=== PATIENT | male | born 1955 | race Caucasian/White ===

== ENCOUNTER 2019-07-16 13:16 | Emergency (ER) | payer OTHER ==
[~2019-07-16] VITALS: Ht 175.3 cm; Wt 97.5 kg
[~2019-07-16 13:16] MED LIST: CEPH500 PO; HYDACE5 PO
== END 2019-07-16 15:41 | disposition home or self-care (01) ==
LOC: ER 13:16
DX: S40.021A Contusion of right upper arm, initial encounter (principal); M25.511 Pain in right shoulder; F17.200 Nicotine dependence, unspecified, uncomplicated; W19.XXXA Unspecified fall, initial encounter
CPT/HCPCS: 73030; 99283-25

== ENCOUNTER 2022-03-10 17:40 | Emergency (ER) | payer OTHER ==
[~2022-03-10] VITALS: Ht 175.3 cm; Wt 93.0 kg
[~2022-03-10 17:40] MED LIST changes: +ACET325 PO; +IBUP400 PO; +OXYC5 PO
[2022-03-10 18:17] LABS: BASOPHILS ABSOLUTE AUTO 0.06 K/mm3 (0.00-0.23); BASOPHILS PERCENT AUTO 1 % (0-2); EOSINOPHILS PERCENT AUTO 1 % (0-6); Hematocrit 43.6 % (37.0-53.0); Hemoglobin 14.4 g/dL (13.5-17.5); IMMATURE GRAN ABSOLUTE AUTO 0.05 K/mm3 (0.00-0.10); IMMATURE GRAN PERCENT AUTO 1 % (0-1); LYMPHOCYTES ABSOLUTE AUTO 1.64 K/mm3 (0.84-5.20); LYMPHOCYTES PERCENT AUTO 18 % (21-46); MONOCYTES ABSOLUTE AUTO 0.78 K/mm3 (0.16-1.47); MONOCYTES PERCENT AUTO 8 % (4-13); Mean Corpuscular Volume 94 fL (80-100); Mean Platelet Volume 9.8 fL (9.1-12.4); NEUTROPHILS ABSOLUTE AUTO 6.61 K/mm3 (1.96-9.15); NEUTROPHILS PERCENT AUTO 72 % (41-73); Platelet Count 257 K/mm3 (150-400); RDW Coefficient Variation 12.7 % (11.7-14.2); RDW Standard Deviation 43.7 fL (35.1-46.3); Red Blood Cell Count 4.64 M/mm3 (4.30-5.90); White Blood Cell Count 9.24 K/mm3 (4.00-11.30)
[2022-03-10 18:32] LABS: Albumin, Blood 3.4 g/dL (3.4-5.0); Bilirubin, Total 0.5 mg/dL (0.1-1.0); Bun/Creatinine Ratio 14.6 (12.0-20.0); Creatinine, Blood 1.23 mg/dL (0.60-1.20); Globulin, Blood 3.5 g/dL (2.2-4.0); Potassium, Blood 3.9 mmol/L (3.5-5.5); Total Protein, Blood 6.9 g/dL (6.4-8.2)
== END 2022-03-10 21:05 | disposition home or self-care (01) ==
LOC: ER 17:40
PROVIDERS: Student in an Organized Health Care Education/Training Program
DX: S06.9X9A Unspecified intracranial injury with loss of consciousness of unspecified duration, initial encounter (principal); S00.211A Abrasion of right eyelid and periocular area, initial encounter; S40.812A Abrasion of left upper arm, initial encounter; S40.811A Abrasion of right upper arm, initial encounter; M54.2 Cervicalgia; F17.200 Nicotine dependence, unspecified, uncomplicated; F12.90 Cannabis use, unspecified, uncomplicated; V18.0XXA Pedal cycle driver injured in noncollision transport accident in nontraffic accident, initial encounter; Y92.9 Unspecified place or not applicable
CPT/HCPCS: 36415; 70450; 72125; 80053; 85025; 93005; 93010; 99285-25

== ENCOUNTER 2022-11-28 10:48 | Inpatient (IN) | payer OTHER ==
[~2022-11-28] VITALS: Ht 175.3 cm; Wt 103.8 kg
[2022-11-28 11:14] LABS: BASOPHILS ABSOLUTE AUTO 0.12 K/mm3 (0.00-0.23); BASOPHILS PERCENT AUTO 1 % (0-2); EOSINOPHILS ABSOLUTE AUTO 0.15 K/mm3 (0.00-0.68); EOSINOPHILS PERCENT AUTO 1 % (0-6); Hematocrit 39.1 % (37.0-53.0); Hemoglobin 13.5 g/dL (13.5-17.5); IMMATURE GRAN PERCENT AUTO 1 % (0-1); LYMPHOCYTES ABSOLUTE AUTO 1.23 K/mm3 (0.84-5.20); LYMPHOCYTES PERCENT AUTO 6 % (21-46); MONOCYTES PERCENT AUTO 11 % (4-13); Mean Corpuscular HGB 31.2 pg (26.0-34.0); Mean Corpuscular HGB Conc 34.5 g/dL (31.5-36.5); Mean Corpuscular Volume 90 fL (80-100); NEUTROPHILS PERCENT AUTO 81 % (41-73); Platelet Count 498 K/mm3 (150-400); RDW Coefficient Variation 12.5 % (11.7-14.2); RDW Standard Deviation 41.5 fL (35.1-46.3); Red Blood Cell Count 4.33 M/mm3 (4.30-5.90)
[2022-11-28 13:10] LABS: Albumin, Blood 1.9 g/dL (3.4-5.0); Albumin/Globulin Ratio 0.3 (0.8-1.8); Bun/Creatinine Ratio 17.6 (12.0-20.0); Calcium, Blood 9.7 mg/dL (8.5-10.1); Creatinine, Blood 1.08 mg/dL (0.60-1.20); Potassium, Blood 4.2 mmol/L (3.5-5.5); Total Protein, Blood 7.9 g/dL (6.4-8.2)
[2022-11-28 15:18] LABS: International Normalized Ratio 1.12; Prothrombin Time Results 11.7 Sec (9.7-11.5)
[2022-11-28 16:37] LABS: Automated BF RBC Count 0.003 M/mm3 (0-0)
[2022-11-28 17:05] LABS: Automated BF WBC Count 3.992 K/mm3 (0-999); Body Fluid WBC Count 3992 /mm3 (0-999); RBC Count, Body Fluid 3000 /mm3 (0-0)
[2022-11-28 17:07] LABS: Albumin, Body Fluid 1.8 g/dL; Glucose, Body Fluid 10 mg/dL; Protein, Body Fluid 4.8 g/dL
[2022-11-28 17:25] LABS: Lactate Dehydrogenase, Body Fl 1473 U/L
[2022-11-28 17:26] LABS: Color, Body Fluid Yellow (None-Yellow); Total Cell Count, Body Fluid 100
[2022-11-28 17:27] LABS: Appearance, Body Fluid Cloudy (Clear)
[2022-11-28 17:38] LABS: pH, Body Fluid 7.5
--- NOTE | 2022-11-28 18:27 | NUR ---
PT ARRIVED TO ROOM AT 1645 AFTER RECEIVING A THORACENTESIS AND CT SCAN. REPORTS HIS BREATHING HAS IMPROVED SINCE THE TAP DESPITE RESP BEING AT 32. RESP HAS DECREASED SINCE RESTING IN THE BED SINCE ARRIVAL. DENIES PAIN OR NAUSEA. REPORTS FEELING SOB BUT IMPROVED. INDEPENDENT IN TO BATHROOM. ASKED ABOUT HIS DRINKING ALCOHOL AND HE REPORTS HE HASN'T DRANK IN 3 DAYS AND HASN'T HAD ANY S/S OF WITHDRAWALS. ASKED ABOUT A NICOTINE PATCH AND HE STATED HE WASN'T STRESSED ABOUT IT. SKIN INTACT.
[2022-11-29 04:42] LABS: BASOPHILS PERCENT AUTO 0 % (0-2); EOSINOPHILS PERCENT AUTO 0 % (0-6); Hematocrit 36.6 % (37.0-53.0); Hemoglobin 12.1 g/dL (13.5-17.5); IMMATURE GRAN PERCENT AUTO 3 % (0-1); LYMPHOCYTES ABSOLUTE AUTO 1.13 K/mm3 (0.84-5.20); LYMPHOCYTES PERCENT AUTO 5 % (21-46); MONOCYTES PERCENT AUTO 7 % (4-13); Mean Corpuscular HGB 30.3 pg (26.0-34.0); Mean Corpuscular HGB Conc 33.1 g/dL (31.5-36.5); Mean Corpuscular Volume 92 fL (80-100); Mean Platelet Volume 10.2 fL (9.1-12.4); NEUTROPHILS ABSOLUTE AUTO 19.35 K/mm3 (1.96-9.15); NEUTROPHILS PERCENT AUTO 85 % (41-73); Platelet Count 476 K/mm3 (150-400); RDW Coefficient Variation 12.7 % (11.7-14.2); RDW Standard Deviation 42.3 fL (35.1-46.3); White Blood Cell Count 22.78 K/mm3 (4.00-11.30)
--- NOTE | 2022-11-29 04:55 | NUR ---
SHIFT NOTE ALERT AND ORIENTED X4 WITH SOME CONFUSION, COOPERATIVE WITH CARE. LUNG SOUNDS DIM WITH CRACKLES IN THE BASES. TELE SR, SOME TRACE EDEMA. SEVERE ABD DISTENTION, FIRM, GUARDED, ACTIVE BS, BM THIS SHIFT REPORTED BY PATIENT. NO CHANGE IN CIWA SCORES, JUST SOME MILD TREMORS. IV SL AFTER 1L INFUSION. NO OTHER ISSUES TO REPORT.
[2022-11-29 05:11] LABS: Magnesium, Blood 2.5 mg/dL (1.6-2.4)
[2022-11-29 05:16] LABS: Albumin, Blood 1.7 g/dL (3.4-5.0); Albumin/Globulin Ratio 0.3 (0.8-1.8); Bilirubin, Total 0.6 mg/dL (0.1-1.0); Bun/Creatinine Ratio 28.6 (12.0-20.0); Calcium, Blood 9.2 mg/dL (8.5-10.1); Creatinine, Blood 0.84 mg/dL (0.60-1.20); Globulin, Blood 5.7 g/dL (2.2-4.0); Potassium, Blood 4.6 mmol/L (3.5-5.5); Total Protein, Blood 7.4 g/dL (6.4-8.2)
--- NOTE | 2022-11-30 03:11 | NUR ---
SHIFT SUMMARY NOC PT A/O X 4. PT DX IS ARF WITH L PLEURAL EFFUSION AND SEPSIS WHO IS ON O2 2L/NC SPO2 > 92% PT LUNG SOUND WHEEZY WITH CRACKLES AND DIMINISHED INBOTH BASES. PT HAD THORACENTISIS WITH 700ML OF FLUID DRAINED. PT IS CURRENTLY ON AN ABX REGIMENT. PT IS ON TELE RUNNING SINUS RHYTHM @ 89 BPM. PT HAS SEVERE ABD DISTENTION AND NOTES MINIMAL PAIN. PT HAD C/O OF PAIN IN RIGHT SHOULDER CHRONIC IN NATURE AND MEDICATED PER EMAR. PT HAS CIWA PRN BUT PT DID NOT EXHIBIT ANY ALCOHOL WITHDRAWAL S/SX. PT PLEASANT AND COOPERATIVE WITH CARE. PT IS CURRENTLY RESTING IN BED WITH BED IN LOWEST POSITION, AND CALL LIGHT WITHIN REACH. WCTM.
[2022-11-30 05:15] LABS: BASOPHILS ABSOLUTE AUTO 0.12 K/mm3 (0.00-0.23); BASOPHILS PERCENT AUTO 1 % (0-2); EOSINOPHILS ABSOLUTE AUTO 0.16 K/mm3 (0.00-0.68); EOSINOPHILS PERCENT AUTO 1 % (0-6); Hematocrit 36.8 % (37.0-53.0); Hemoglobin 12.1 g/dL (13.5-17.5); IMMATURE GRAN PERCENT AUTO 4 % (0-1); LYMPHOCYTES ABSOLUTE AUTO 1.64 K/mm3 (0.84-5.20); LYMPHOCYTES PERCENT AUTO 10 % (21-46); MONOCYTES PERCENT AUTO 11 % (4-13); Mean Corpuscular HGB Conc 32.9 g/dL (31.5-36.5); Mean Corpuscular Volume 91 fL (80-100); Mean Platelet Volume 10.5 fL (9.1-12.4); NEUTROPHILS ABSOLUTE AUTO 11.62 K/mm3 (1.96-9.15); NEUTROPHILS PERCENT AUTO 73 % (41-73); Platelet Count 516 K/mm3 (150-400); RDW Coefficient Variation 12.8 % (11.7-14.2); RDW Standard Deviation 42.8 fL (35.1-46.3); Red Blood Cell Count 4.04 M/mm3 (4.30-5.90); White Blood Cell Count 15.94 K/mm3 (4.00-11.30)
[2022-11-30 06:17] LABS: Albumin, Blood 1.7 g/dL (3.4-5.0); Anion Gap 4 mmol/L (6-16); Blood Urea Nitrogen 30 mg/dL (8-24); CO2, Blood 26 mmol/L (21-32); Calcium, Blood 8.7 mg/dL (8.5-10.1); Chloride, Blood 103 mmol/L (98-108); Creatinine, Blood 0.83 mg/dL (0.60-1.20); Glomerular Filtration Rate 98 (60-); Glucose, Blood 163 mg/dL (70-99); Phosphorus, Blood 2.5 mg/dL (2.5-4.9); Potassium, Blood 4.5 mmol/L (3.5-5.5); Sodium, Blood 133 mmol/L (136-145)
--- NOTE | 2022-11-30 16:49 | NUR ---
SHIFT SUMMARY NO ACUTE CHANGES THIS SHIFT. PT AOX4, INDEPENDENT TO THE BATHROOM. HE HAS BEEN SITTING UP IN THE CHAIR MOST OF THE SHIFT. HE HAD A FRIEND VISIT TODAY. HE IS VERY PLESANT AND MAKES HIS NEEDS KNOWN. C/O SHOULDER PAIN TWICE AND WAS MEDICATED PER THE EMAR. NO OTHER COMPLAINTS. WILL REPORT TO ONCOMING NURSE.
--- NOTE | 2022-12-01 04:30 | NUR ---
Summary: No acute events overnight. Patient on 2L NC did well overnight. VSS. Voids in urinal. Mild pain in L ribs and shoulder, medicated per EMAR. Patient AOx4 calls appropriately. Independent in room.
[2022-12-01 04:35] LABS: Hemoglobin 12.4 g/dL (13.5-17.5); Mean Corpuscular HGB 30.4 pg (26.0-34.0); Mean Corpuscular HGB Conc 33.5 g/dL (31.5-36.5); Mean Corpuscular Volume 91 fL (80-100); Mean Platelet Volume 10.3 fL (9.1-12.4); Platelet Count 514 K/mm3 (150-400); RDW Coefficient Variation 12.7 % (11.7-14.2); RDW Standard Deviation 41.8 fL (35.1-46.3); Red Blood Cell Count 4.08 M/mm3 (4.30-5.90); White Blood Cell Count 17.67 K/mm3 (4.00-11.30)
[2022-12-01 04:52] LABS: Albumin, Blood 1.8 g/dL (3.4-5.0); Anion Gap 3 mmol/L (6-16); Blood Urea Nitrogen 26 mg/dL (8-24); Bun/Creatinine Ratio 35.9 (12.0-20.0); CO2, Blood 28 mmol/L (21-32); Calcium, Blood 8.9 mg/dL (8.5-10.1); Chloride, Blood 103 mmol/L (98-108); Creatinine, Blood 0.73 mg/dL (0.60-1.20); Glomerular Filtration Rate 102 (60-); Glucose, Blood 158 mg/dL (70-99); Phosphorus, Blood 2.8 mg/dL (2.5-4.9); Potassium, Blood 4.5 mmol/L (3.5-5.5); Sodium, Blood 134 mmol/L (136-145)
[2022-12-01 05:31] LABS: BAND PERCENT MAN 5 % (0-8); BASOPHILS PERCENT MAN 0 % (0-2); EOSINOPHILS ABSOLUTE MAN 0.17 K/mm3 (0.00-0.68); EOSINOPHILS PERCENT MAN 1 % (0-6); LYMPHOCYTES ABSOLUTE MAN 2.47 K/mm3 (0.84-5.20); LYMPHOCYTES PERCENT MAN 14 % (21-46); MONOCYTES ABSOLUTE MAN 1.59 K/mm3 (0.16-1.47); MONOCYTES PERCENT MAN 9 % (4-13); NEUTROPHILS ABSOLUTE MAN 13.42 K/mm3 (1.96-9.15); SEG NEUTROPHILS PERCENT MAN 71 % (41-73); TOTAL CELLS COUNTED 100
--- NOTE | 2022-12-01 18:09 | NUR ---
SHIFT SUMMARY PT REMAINS AOX4 AND INDEPENDENT. HE C/O PAIN TWICE AND WAS MEDICATED PER THE EMAR. A CHEST XR WAS COMPLETED TODAY AND HE IS SCHEDULED TO HAVE AN U/S IN THE AM. A PULMONARY CONSULT WILL BE CALLED IN IN THE AM PER DR. RAVI. A POSSIBLE THORACENTESIS WILL HAVE TO BE DONE PENDING RESULTS. PT IS PLESANT AND COOPERATIVE. WILL REPORT TO ONCOMING NURSE.
[2022-12-02 04:52] LABS: EOSINOPHILS ABSOLUTE AUTO 0.28 K/mm3 (0.00-0.68); EOSINOPHILS PERCENT AUTO 1 % (0-6); Hematocrit 38.5 % (37.0-53.0); Hemoglobin 12.7 g/dL (13.5-17.5); IMMATURE GRAN ABSOLUTE AUTO 1.47 K/mm3 (0.00-0.10); IMMATURE GRAN PERCENT AUTO 5 % (0-1); LYMPHOCYTES ABSOLUTE AUTO 2.15 K/mm3 (0.84-5.20); LYMPHOCYTES PERCENT AUTO 8 % (21-46); MONOCYTES ABSOLUTE AUTO 1.76 K/mm3 (0.16-1.47); MONOCYTES PERCENT AUTO 7 % (4-13); Mean Corpuscular HGB 29.9 pg (26.0-34.0); Mean Corpuscular Volume 91 fL (80-100); Mean Platelet Volume 10.2 fL (9.1-12.4); NEUTROPHILS ABSOLUTE AUTO 21.47 K/mm3 (1.96-9.15); NEUTROPHILS PERCENT AUTO 79 % (41-73); Platelet Count 633 K/mm3 (150-400); RDW Coefficient Variation 12.5 % (11.7-14.2); RDW Standard Deviation 41.1 fL (35.1-46.3); Red Blood Cell Count 4.25 M/mm3 (4.30-5.90); White Blood Cell Count 27.17 K/mm3 (4.00-11.30)
--- NOTE | 2022-12-02 05:05 | NUR ---
Summary: Patient in a lot of pain overnight in his L side. Patient has been getting tylenol and ibuprophen with no relief. Notified MD and recieved orders for percocet and toradol. Patient reports slight inprovement but pain still causing him to take short shallow breaths. Called Dr. Toledo answering service to notify him of consult this am. VSS. O2 stable on 2L NC. Offered patient a shower he declined so assisted him in taking a sponge bath. Patient ambulates independently in room. Call light in reach.
[2022-12-02 05:09] LABS: Anion Gap 4 mmol/L (6-16); Blood Urea Nitrogen 24 mg/dL (8-24); Bun/Creatinine Ratio 31.3 (12.0-20.0); CO2, Blood 26 mmol/L (21-32); Calcium, Blood 9.4 mg/dL (8.5-10.1); Chloride, Blood 101 mmol/L (98-108); Creatinine, Blood 0.77 mg/dL (0.60-1.20); Glomerular Filtration Rate 100 (60-); Glucose, Blood 194 mg/dL (70-99); Phosphorus, Blood 2.9 mg/dL (2.5-4.9); Potassium, Blood 4.8 mmol/L (3.5-5.5); Sodium, Blood 131 mmol/L (136-145)
[2022-12-02 05:17] LABS: BASOPHILS ABSOLUTE AUTO 0.04 K/mm3 (0.00-0.23); BASOPHILS PERCENT AUTO 0 % (0-2)
[2022-12-02 11:24] LABS: Lactate Dehydrogenase, Body Fl 513 U/L; Protein, Body Fluid 4.6 g/dL
[2022-12-02 11:25] LABS: Automated BF WBC Count 0.135 K/mm3 (0-999)
[2022-12-02 11:28] LABS: Body Fluid WBC Count 135 /mm3 (0-999)
[2022-12-02 11:31] LABS: pH, Body Fluid 7.5
[2022-12-02 11:58] LABS: RBC Count, Body Fluid 240 /mm3 (0-0)
[2022-12-02 11:59] LABS: Appearance, Body Fluid Clear (Clear); Color, Body Fluid Yellow (None-Yellow)
[2022-12-02 12:54] LABS: Total Cell Count, Body Fluid 100
--- NOTE | 2022-12-02 16:13 | NUR ---
SHIFT SUMMARY PT AOX4 AND INDEPENDENT TO THE BATHROOM. HE GOT A CT GUIDED PIGTAIL DRAIN PLACED IN HIS ADRYAN, DRAINING YELLOW FLUID. DRAIN IS PATENT AND DRESSING IS CDI. HE HAS C/O PAIN AFTER THE PROCEDURE AND WAS MEDICATED PER THE EMAR. HE HAS BEEN RESTING/SLEEPING EVER SINCE. HE DID HAVE A FRIEND VISIT BUT HE WAS A BIT TIRED. WILL REPORT TO ONCOMING NURSE.
[2022-12-03 04:54] LABS: BASOPHILS ABSOLUTE AUTO 0.17 K/mm3 (0.00-0.23); BASOPHILS PERCENT AUTO 1 % (0-2); EOSINOPHILS ABSOLUTE AUTO 0.29 K/mm3 (0.00-0.68); EOSINOPHILS PERCENT AUTO 1 % (0-6); Hematocrit 35.8 % (37.0-53.0); Hemoglobin 11.9 g/dL (13.5-17.5); IMMATURE GRAN ABSOLUTE AUTO 1.15 K/mm3 (0.00-0.10); IMMATURE GRAN PERCENT AUTO 4 % (0-1); LYMPHOCYTES ABSOLUTE AUTO 1.75 K/mm3 (0.84-5.20); LYMPHOCYTES PERCENT AUTO 6 % (21-46); MONOCYTES ABSOLUTE AUTO 1.72 K/mm3 (0.16-1.47); MONOCYTES PERCENT AUTO 6 % (4-13); Mean Corpuscular HGB 30.1 pg (26.0-34.0); Mean Corpuscular HGB Conc 33.2 g/dL (31.5-36.5); Mean Corpuscular Volume 90 fL (80-100); Mean Platelet Volume 10.4 fL (9.1-12.4); NEUTROPHILS ABSOLUTE AUTO 24.68 K/mm3 (1.96-9.15); NEUTROPHILS PERCENT AUTO 83 % (41-73); Platelet Count 613 K/mm3 (150-400); RDW Coefficient Variation 12.6 % (11.7-14.2); RDW Standard Deviation 41.7 fL (35.1-46.3); Red Blood Cell Count 3.96 M/mm3 (4.30-5.90); White Blood Cell Count 29.76 K/mm3 (4.00-11.30)
[2022-12-03 05:12] LABS: Total Protein, Blood 7.4 g/dL (6.4-8.2)
--- NOTE | 2022-12-03 06:13 | NUR ---
Deng: No acute events overnight. Patient had a drain placed to L upper lung draining clear yellow fluid. Only 100mL output overnight. Patient on 2L NC. He does become very tachypnic with ambulation and when he is in pain. Provided pillows to assist with offsetting pressure to drain on his back while in bed. VSS. Patient independent in room and calls appropriately.
[2022-12-03 13:26] LABS: RBC Count, Body Fluid 28000 /mm3 (0-0)
[2022-12-03 13:27] LABS: Body Fluid WBC Count 56720 /mm3 (0-999)
[2022-12-03 13:34] LABS: Automated BF RBC Count 0.028 M/mm3 (0-0)
[2022-12-03 13:40] LABS: Glucose, Body Fluid 9 mg/dL; Protein, Body Fluid 4.7 g/dL
[2022-12-03 14:21] LABS: Appearance, Body Fluid Cloudy (Clear); Total Cell Count, Body Fluid 100
[2022-12-03 15:21] LABS: pH, Body Fluid 7.3
[2022-12-03 15:24] LABS: Lactate Dehydrogenase, Body Fl 6102 U/L
--- NOTE | 2022-12-03 19:35 | NUR ---
PT A/O X4 IND IN ROOM. PT NOW HAS 2 PIGTAIL CHEST TUBES TO POSTERIOR L BACK. TOLERATING WELL. CHEST TUBE #1 DRAINING LIGHT YELLOW CLEAR FLUID WITH TOTAL AMOUNT TODAY OF 50CC. CHEST TUBE #2 PLACED TODAY DRAINING AQUILINO CLOUDY FLUID WITH A TOTAL AMOUNT OF 680 CC. PT PAIN MANAGED WITH CURRENT PAIN MEDICATIONS. PT REPORTS SOB IMPROVED AFTER 2ND CHEST TUBE PLACED TODAY. PT EATING WELL AND DRINKING FLUIDS WELL. PT STARTED METFORMIN THIS EVENING AND EDUCATED ON MEDICATION. PT TOLERATED WELL WITH NO OBSERVED OR REPORTS ADVERSE REACTIONS. PT SITTING UP IN CHAIR WATCHING TV AT SHIFT END DENIES ANY CONCERNS OR NEEDS AT THIS TIME.
[2022-12-04 04:40] LABS: BASOPHILS ABSOLUTE AUTO 0.11 K/mm3 (0.00-0.23); BASOPHILS PERCENT AUTO 1 % (0-2); EOSINOPHILS ABSOLUTE AUTO 0.37 K/mm3 (0.00-0.68); EOSINOPHILS PERCENT AUTO 2 % (0-6); Hematocrit 33.8 % (37.0-53.0); Hemoglobin 11.2 g/dL (13.5-17.5); IMMATURE GRAN ABSOLUTE AUTO 0.87 K/mm3 (0.00-0.10); IMMATURE GRAN PERCENT AUTO 4 % (0-1); LYMPHOCYTES ABSOLUTE AUTO 1.25 K/mm3 (0.84-5.20); LYMPHOCYTES PERCENT AUTO 6 % (21-46); MONOCYTES PERCENT AUTO 7 % (4-13); Mean Corpuscular HGB Conc 33.1 g/dL (31.5-36.5); Mean Corpuscular Volume 91 fL (80-100); Mean Platelet Volume 10.2 fL (9.1-12.4); NEUTROPHILS ABSOLUTE AUTO 18.56 K/mm3 (1.96-9.15); NEUTROPHILS PERCENT AUTO 82 % (41-73); Platelet Count 603 K/mm3 (150-400); RDW Coefficient Variation 12.5 % (11.7-14.2); RDW Standard Deviation 41.4 fL (35.1-46.3); Red Blood Cell Count 3.73 M/mm3 (4.30-5.90); White Blood Cell Count 22.66 K/mm3 (4.00-11.30)
--- NOTE | 2022-12-04 04:51 | NUR ---
SHIFT SUMMARY PT SITTING UP IN CHAIR DURING BEDSIDE ROUNDS- [address] AND ENGAGED - EDEMA NOTED AROUND BOTH DRAINS- PER JERMAN DURING BEDSIDE REPORT THAT BOTH DRAINAGE AREAS APPEARED TO HAVE EDEMA T/O DAY PT INDEPENDENT IN ROOM - PT USES URINAL- PT AMBULATES TO BR AT TIMES- PT SOB - PT RECOVERS WITH DEEP BREATHING EXERCISES WITHIN 90 SECONDS - DRAIN 1 PUT OUT MINIMAL OUTPUT- NOT ENOUGH TO EMPTY FROM URISOL DRAIN- DRAIN 2 OUTPUT = 120 WITH SEDIMENT - PT SITTING UP IN CHAIR- PER PT THE TORADOL AND PERCOCET HELP KEEP PAIN TOLERABLE- CALL LIGHT WITHIN REACH
[2022-12-04 05:39] LABS: Albumin, Blood 1.7 g/dL (3.4-5.0); Albumin/Globulin Ratio 0.3 (0.8-1.8); Bilirubin, Total 0.3 mg/dL (0.1-1.0); Bun/Creatinine Ratio 30.3 (12.0-20.0); Calcium, Blood 8.9 mg/dL (8.5-10.1); Creatinine, Blood 0.76 mg/dL (0.60-1.20); Globulin, Blood 5.5 g/dL (2.2-4.0); Potassium, Blood 4.7 mmol/L (3.5-5.5); Total Protein, Blood 7.2 g/dL (6.4-8.2)
--- NOTE | 2022-12-04 17:41 | NUR ---
SUMMNARY- PT A/O X4. INDEPENDANT IN ROOM. OXYGEN 3L NC. DRAINS LL HEMITHORAX CT DONT STEVE. LUCERO AT BEDSIDE TO REMOVE L MID THROAX DRAIN #1. LEFT DRAIN #[address]. PT HAS BEEN COUGHING LG AMOUNTS OF GREENISH SPUTUM INTO EMISIS BAG. LUNGS L SIDE SCATTERED COARSE, DIM BASES. PLANS TO GO BACK HOME AND CONT TO SMOKE CIGARETTES AND DRINK ETOH. REFUSING NICOTINE PATCH. STATING IT DOEW NO GOOD. PT ON TELE SR 80'S. CONT PULSE OX 94-96%. NEWLY DX WITH DM, DIATETIC TEACHING PERFORMED BY DIETITIAN. PT STATES HE WILL ATTEMPT CHANGES BUT CAN'T PROMISE HE WILL BE ABLE TO CHANGE EVERYTHING ALL AT ONCE. RESISTANT TO LIFESTYLE CHANGE TEACHING IN RELATION TO NICOTINE OR ETOH. STARTED ON METFORMIN TODAY. PLAN FOR DR HUERTA TO REEVAL LUNG STATUS IN AM, AM CXR ORDERED. CHRONIC PAIN IN R SHOULDER AND L CT SITE CONTROLLED WITH PERCOCET THIS AM.
--- NOTE | 2022-12-05 05:04 | NUR ---
SHIFT SUMMARY PT SITTING UP IN CHAIR DURING BEDSIDE ROUNDS- PT REPORTS PAIN IN LEFT UPPER BACK TOLERABLE AT BEGINNING OF SHIFT- PT CONTINUES TO HAVE [address]- 2129 CALL FROM TELE THAT PT HAS A RUN OF SVT- TELE STRIP SHOWED PT HAVING A DROPPED BEAT- PT UP TO BR HAVING BM AT THAT TIME- PT DENIED CHEST PAIN/SOB- PT RETURNED TO CHAIR AND REQUESTED SANDWICH- PT INDEPENDENT IN ROOM
[2022-12-05 05:12] LABS: BASOPHILS ABSOLUTE AUTO 0.15 K/mm3 (0.00-0.23); BASOPHILS PERCENT AUTO 1 % (0-2); EOSINOPHILS ABSOLUTE AUTO 0.45 K/mm3 (0.00-0.68); EOSINOPHILS PERCENT AUTO 2 % (0-6); Hematocrit 36.7 % (37.0-53.0); Hemoglobin 12.1 g/dL (13.5-17.5); IMMATURE GRAN ABSOLUTE AUTO 0.66 K/mm3 (0.00-0.10); IMMATURE GRAN PERCENT AUTO 3 % (0-1); LYMPHOCYTES ABSOLUTE AUTO 2.47 K/mm3 (0.84-5.20); LYMPHOCYTES PERCENT AUTO 12 % (21-46); MONOCYTES ABSOLUTE AUTO 1.59 K/mm3 (0.16-1.47); MONOCYTES PERCENT AUTO 8 % (4-13); Mean Corpuscular Volume 91 fL (80-100); Mean Platelet Volume 10.8 fL (9.1-12.4); NEUTROPHILS ABSOLUTE AUTO 14.59 K/mm3 (1.96-9.15); NEUTROPHILS PERCENT AUTO 73 % (41-73); Platelet Count 708 K/mm3 (150-400); RDW Coefficient Variation 12.6 % (11.7-14.2); RDW Standard Deviation 41.6 fL (35.1-46.3); Red Blood Cell Count 4.03 M/mm3 (4.30-5.90); White Blood Cell Count 19.91 K/mm3 (4.00-11.30)
[2022-12-05 06:04] LABS: Albumin, Blood 1.9 g/dL (3.4-5.0); Albumin/Globulin Ratio 0.3 (0.8-1.8); Bilirubin, Total 0.3 mg/dL (0.1-1.0); Bun/Creatinine Ratio 37.2 (12.0-20.0); Calcium, Blood 9.5 mg/dL (8.5-10.1); Creatinine, Blood 0.75 mg/dL (0.60-1.20); Globulin, Blood 5.9 g/dL (2.2-4.0); Potassium, Blood 4.7 mmol/L (3.5-5.5); Total Protein, Blood 7.8 g/dL (6.4-8.2)
[2022-12-06 05:16] LABS: BASOPHILS PERCENT AUTO 1 % (0-2); EOSINOPHILS ABSOLUTE AUTO 0.29 K/mm3 (0.00-0.68); EOSINOPHILS PERCENT AUTO 2 % (0-6); Hemoglobin 11.7 g/dL (13.5-17.5); IMMATURE GRAN PERCENT AUTO 2 % (0-1); LYMPHOCYTES ABSOLUTE AUTO 1.73 K/mm3 (0.84-5.20); LYMPHOCYTES PERCENT AUTO 10 % (21-46); MONOCYTES ABSOLUTE AUTO 1.57 K/mm3 (0.16-1.47); MONOCYTES PERCENT AUTO 9 % (4-13); Mean Corpuscular HGB 29.9 pg (26.0-34.0); Mean Corpuscular HGB Conc 33.4 g/dL (31.5-36.5); Mean Corpuscular Volume 90 fL (80-100); Mean Platelet Volume 10.8 fL (9.1-12.4); NEUTROPHILS ABSOLUTE AUTO 13.81 K/mm3 (1.96-9.15); NEUTROPHILS PERCENT AUTO 78 % (41-73); Platelet Count 689 K/mm3 (150-400); RDW Coefficient Variation 12.7 % (11.7-14.2); Red Blood Cell Count 3.91 M/mm3 (4.30-5.90)
[2022-12-06 05:42] LABS: Albumin, Blood 1.9 g/dL (3.4-5.0); Albumin/Globulin Ratio 0.3 (0.8-1.8); Bilirubin, Total 0.6 mg/dL (0.1-1.0); Bun/Creatinine Ratio 28.6 (12.0-20.0); Calcium, Blood 9.1 mg/dL (8.5-10.1); Creatinine, Blood 0.77 mg/dL (0.60-1.20); Globulin, Blood 5.8 g/dL (2.2-4.0); Potassium, Blood 4.5 mmol/L (3.5-5.5); Total Protein, Blood 7.7 g/dL (6.4-8.2)
--- NOTE | 2022-12-06 06:45 | NUR ---
Shift Summary Pt C/O pain in R shoulder, given PRN Toradol x1 and Tylenol X1. Telemetry called this AM and said pt had a run of bradycardia at 0130, 2 beats of 35 BPM. No c/o of chest pain or light headedness. Had occasional productive cough t/o the night. PT on RA and continuous O2 monitoring, maintaning O2 > 94%. AOx4, independent in room, continent, pleasant and cooperative.
[2022-12-07 05:07] LABS: BASOPHILS ABSOLUTE AUTO 0.17 K/mm3 (0.00-0.23); BASOPHILS PERCENT AUTO 1 % (0-2); EOSINOPHILS ABSOLUTE AUTO 0.23 K/mm3 (0.00-0.68); EOSINOPHILS PERCENT AUTO 1 % (0-6); Hemoglobin 11.6 g/dL (13.5-17.5); IMMATURE GRAN ABSOLUTE AUTO 0.28 K/mm3 (0.00-0.10); IMMATURE GRAN PERCENT AUTO 1 % (0-1); LYMPHOCYTES ABSOLUTE AUTO 1.78 K/mm3 (0.84-5.20); LYMPHOCYTES PERCENT AUTO 9 % (21-46); MONOCYTES PERCENT AUTO 11 % (4-13); Mean Corpuscular HGB 30.1 pg (26.0-34.0); Mean Corpuscular HGB Conc 33.1 g/dL (31.5-36.5); Mean Corpuscular Volume 91 fL (80-100); Mean Platelet Volume 10.2 fL (9.1-12.4); NEUTROPHILS ABSOLUTE AUTO 15.48 K/mm3 (1.96-9.15); NEUTROPHILS PERCENT AUTO 77 % (41-73); Platelet Count 679 K/mm3 (150-400); RDW Coefficient Variation 12.9 % (11.7-14.2); RDW Standard Deviation 41.9 fL (35.1-46.3); Red Blood Cell Count 3.86 M/mm3 (4.30-5.90); White Blood Cell Count 20.04 K/mm3 (4.00-11.30)
[2022-12-07 05:43] LABS: Albumin/Globulin Ratio 0.4 (0.8-1.8); Bilirubin, Total 0.8 mg/dL (0.1-1.0); Bun/Creatinine Ratio 27.7 (12.0-20.0); C-REACTIVE PROTEIN, EXT RANGE 12.3 mg/dL (0.000-0.300); Calcium, Blood 8.8 mg/dL (8.5-10.1); Creatinine, Blood 0.76 mg/dL (0.60-1.20); Globulin, Blood 5.6 g/dL (2.2-4.0); Magnesium, Blood 2.4 mg/dL (1.6-2.4); Phosphorus, Blood 2.8 mg/dL (2.5-4.9); Potassium, Blood 4.3 mmol/L (3.5-5.5); Total Protein, Blood 7.6 g/dL (6.4-8.2)
--- NOTE | 2022-12-07 06:28 | NUR ---
Shift Summary L Flank drain patent and draining lexus fluid. C/O pain early in the shift in L flank, pt states L flank pain got much better as the night went on. Some R shoulder pain. On tele and cont. pulse ox monitor, no adverse events. AOx4, independent in room, pleasant and cooperative, VSS.
--- NOTE | 2022-12-07 20:02 | NUR ---
PT A&O X4. PT COOPERATIVE THROUGHOUT SHIFT. PT CHANGED TO PLEURAVAC TODAY WITH 200 OUTPUT WITH 250 IV INTAKE. PT HAS C/O 6-7/10 PAIN SEVERAL TIME THIS SHIFT WITH THE MOST PAIN BEING IN HIS TUBE WHEN IT DRAINS. DRAINING AQUILINO FLUID. DR. MCMULLEN GAVE ALTEPLACE AND DORNASE FOR CHEST TUBE AROUND 1645. NOB TURNED BACK AT 1830 W/ TUBE DRAINING WELL. EXPLAINED PLAN TO ABORIGINAL HOME SCHOOL LIAISON OFFICER NURSE REGARDING INTAKE/OUTPT DOCUMENTATION. CALL LIGHT IN REACH.
[2022-12-08 05:33] LABS: BASOPHILS ABSOLUTE AUTO 0.08 K/mm3 (0.00-0.23); BASOPHILS PERCENT AUTO 1 % (0-2); EOSINOPHILS ABSOLUTE AUTO 0.14 K/mm3 (0.00-0.68); EOSINOPHILS PERCENT AUTO 1 % (0-6); Hematocrit 32.5 % (37.0-53.0); Hemoglobin 10.9 g/dL (13.5-17.5); IMMATURE GRAN ABSOLUTE AUTO 0.21 K/mm3 (0.00-0.10); IMMATURE GRAN PERCENT AUTO 1 % (0-1); LYMPHOCYTES ABSOLUTE AUTO 1.54 K/mm3 (0.84-5.20); LYMPHOCYTES PERCENT AUTO 9 % (21-46); MONOCYTES ABSOLUTE AUTO 1.58 K/mm3 (0.16-1.47); MONOCYTES PERCENT AUTO 9 % (4-13); Mean Corpuscular HGB Conc 33.5 g/dL (31.5-36.5); Mean Corpuscular Volume 90 fL (80-100); Mean Platelet Volume 10.3 fL (9.1-12.4); NEUTROPHILS ABSOLUTE AUTO 13.75 K/mm3 (1.96-9.15); NEUTROPHILS PERCENT AUTO 80 % (41-73); Platelet Count 630 K/mm3 (150-400); RDW Coefficient Variation 12.7 % (11.7-14.2); Red Blood Cell Count 3.63 M/mm3 (4.30-5.90)
[2022-12-08 05:44] LABS: Bun/Creatinine Ratio 25.5 (12.0-20.0); Calcium, Blood 8.6 mg/dL (8.5-10.1); Creatinine, Blood 0.63 mg/dL (0.60-1.20); Potassium, Blood 4.1 mmol/L (3.5-5.5)
[2022-12-09 05:43] LABS: BASOPHILS ABSOLUTE AUTO 0.08 K/mm3 (0.00-0.23); BASOPHILS PERCENT AUTO 1 % (0-2); EOSINOPHILS ABSOLUTE AUTO 0.21 K/mm3 (0.00-0.68); EOSINOPHILS PERCENT AUTO 1 % (0-6); Hematocrit 32.4 % (37.0-53.0); IMMATURE GRAN ABSOLUTE AUTO 0.15 K/mm3 (0.00-0.10); IMMATURE GRAN PERCENT AUTO 1 % (0-1); LYMPHOCYTES ABSOLUTE AUTO 1.43 K/mm3 (0.84-5.20); LYMPHOCYTES PERCENT AUTO 9 % (21-46); MONOCYTES ABSOLUTE AUTO 1.42 K/mm3 (0.16-1.47); MONOCYTES PERCENT AUTO 9 % (4-13); Mean Corpuscular HGB 30.3 pg (26.0-34.0); Mean Corpuscular Volume 89 fL (80-100); NEUTROPHILS ABSOLUTE AUTO 12.24 K/mm3 (1.96-9.15); NEUTROPHILS PERCENT AUTO 79 % (41-73); Platelet Count 586 K/mm3 (150-400); RDW Coefficient Variation 12.7 % (11.7-14.2); RDW Standard Deviation 42.2 fL (35.1-46.3); Red Blood Cell Count 3.63 M/mm3 (4.30-5.90); White Blood Cell Count 15.53 K/mm3 (4.00-11.30)
--- NOTE | 2022-12-09 05:48 | NUR ---
Summary: No acute events overnight. Small output to L chest tube connected to suction. VSS. Pain meds given per EMAR. Patient has a lot of sputum that he is spitting out. Independent in room. Stable on room air.
--- NOTE | 2022-12-09 17:47 | NUR ---
SHIFT SUMMARY NO ACUTE CHANGES DURING SHIFT. PT ALERT AND ORIENTED, CALLS APPROPRIATELY. CHEST TUBE IN PLACE TO SUCTION. PT REMAINS ON RA, INDEPENEDENT IN ROOM TO BATHROOM. PRN PAIN MEDICATIONS ADMINSTERED, EFFECTIVE. WILL CONTINUE TO MONITOR. CALL LIGHT WITHIN REACH.
[2022-12-10 05:01] LABS: BASOPHILS ABSOLUTE AUTO 0.09 K/mm3 (0.00-0.23); BASOPHILS PERCENT AUTO 1 % (0-2); EOSINOPHILS ABSOLUTE AUTO 0.22 K/mm3 (0.00-0.68); EOSINOPHILS PERCENT AUTO 2 % (0-6); Hematocrit 31.1 % (37.0-53.0); Hemoglobin 10.3 g/dL (13.5-17.5); IMMATURE GRAN ABSOLUTE AUTO 0.11 K/mm3 (0.00-0.10); IMMATURE GRAN PERCENT AUTO 1 % (0-1); LYMPHOCYTES ABSOLUTE AUTO 1.33 K/mm3 (0.84-5.20); LYMPHOCYTES PERCENT AUTO 9 % (21-46); MONOCYTES ABSOLUTE AUTO 1.47 K/mm3 (0.16-1.47); MONOCYTES PERCENT AUTO 10 % (4-13); Mean Corpuscular HGB 29.5 pg (26.0-34.0); Mean Corpuscular HGB Conc 33.1 g/dL (31.5-36.5); Mean Corpuscular Volume 89 fL (80-100); Mean Platelet Volume 9.7 fL (9.1-12.4); NEUTROPHILS ABSOLUTE AUTO 11.04 K/mm3 (1.96-9.15); NEUTROPHILS PERCENT AUTO 78 % (41-73); Platelet Count 561 K/mm3 (150-400); RDW Coefficient Variation 12.8 % (11.7-14.2); RDW Standard Deviation 41.5 fL (35.1-46.3); Red Blood Cell Count 3.49 M/mm3 (4.30-5.90); White Blood Cell Count 14.26 K/mm3 (4.00-11.30)
--- NOTE | 2022-12-10 05:37 | NUR ---
Summary: No acute events overnight. Small output to L chest tube connected to suction. VSS. Pain meds given per EMAR. Patient has a lot of sputum that he is spitting out. Independent in room. Stable on room air. Took patient for short walk and he became short of breath with the exhertion. Recovered once resting in chair.
[2022-12-10 07:06] LABS: Albumin, Blood 1.8 g/dL (3.4-5.0); Albumin/Globulin Ratio 0.3 (0.8-1.8); Bilirubin, Total 0.5 mg/dL (0.1-1.0); Calcium, Blood 8.6 mg/dL (8.5-10.1); Creatinine, Blood 0.72 mg/dL (0.60-1.20); Globulin, Blood 5.2 g/dL (2.2-4.0); Potassium, Blood 4.1 mmol/L (3.5-5.5)
--- NOTE | 2022-12-10 17:57 | NUR ---
SHIFT SUMMARY PT ALERT AND ORIENTED, CALLS APPROPRIATELY. PT REMAINS ON RA, INDEPENDENT IN ROOM. CHEST TUBE REMOVED TODAY, DRESSING CDI. PLAN FOR POSSIBLE D/C TOMORROW. PRN PAIN MEDICATIONS ADMINISTERED X 2 DURING SHIFT, EFFECTIVE. CONTINUE IV ABX. WILL CONTINUE TO MONITOR. CALL LIGHT WITHIN REACH.
[2022-12-11 05:09] LABS: BASOPHILS ABSOLUTE AUTO 0.08 K/mm3 (0.00-0.23); BASOPHILS PERCENT AUTO 1 % (0-2); EOSINOPHILS ABSOLUTE AUTO 0.18 K/mm3 (0.00-0.68); EOSINOPHILS PERCENT AUTO 2 % (0-6); Hematocrit 33.9 % (37.0-53.0); IMMATURE GRAN ABSOLUTE AUTO 0.08 K/mm3 (0.00-0.10); IMMATURE GRAN PERCENT AUTO 1 % (0-1); LYMPHOCYTES ABSOLUTE AUTO 1.44 K/mm3 (0.84-5.20); LYMPHOCYTES PERCENT AUTO 13 % (21-46); MONOCYTES ABSOLUTE AUTO 1.28 K/mm3 (0.16-1.47); MONOCYTES PERCENT AUTO 11 % (4-13); Mean Corpuscular HGB 29.3 pg (26.0-34.0); Mean Corpuscular HGB Conc 32.4 g/dL (31.5-36.5); Mean Corpuscular Volume 90 fL (80-100); Mean Platelet Volume 9.7 fL (9.1-12.4); NEUTROPHILS PERCENT AUTO 73 % (41-73); Platelet Count 532 K/mm3 (150-400); RDW Coefficient Variation 12.8 % (11.7-14.2); RDW Standard Deviation 42.4 fL (35.1-46.3); Red Blood Cell Count 3.76 M/mm3 (4.30-5.90); White Blood Cell Count 11.36 K/mm3 (4.00-11.30)
[2022-12-11 05:41] LABS: Albumin, Blood 1.8 g/dL (3.4-5.0); Albumin/Globulin Ratio 0.3 (0.8-1.8); Bilirubin, Total 0.4 mg/dL (0.1-1.0); Bun/Creatinine Ratio 15.8 (12.0-20.0); Calcium, Blood 8.6 mg/dL (8.5-10.1); Creatinine, Blood 0.76 mg/dL (0.60-1.20); Globulin, Blood 5.9 g/dL (2.2-4.0); Potassium, Blood 3.9 mmol/L (3.5-5.5); Total Protein, Blood 7.7 g/dL (6.4-8.2)
--- NOTE | 2022-12-11 06:15 | NUR ---
SHIFT SUMMARY PT SITTING UP IN CHAIR DURING BEDSIDE ROUNDS- PT ON TAR HEATER T/O NIGHT- SATS WNL MEDICATED PT X 1 FOR PAIN- IV INFUSED WITHOUT PROBLEMS- PT INDEPENDENT IN ROOM-BED LOW POSITION, CALL LIGHT WITHIN REACH- ROUNDS PER PROTOCOL
[2022-12-11] MEDS ORDERED: Acetaminophen650 M1 PO (11:50)
[2022-12-11] MEDS ORDERED: NICO21TP TOP (11:50)
[2022-12-11] MEDS ORDERED: METF500 PO (11:50)
[2022-12-11] MEDS ORDERED: AMOCLA875 PO (11:51)
--- NOTE | 2022-12-11 14:25 | NUR ---
DISCHARGE SUMMARY: PATIENT DENIED SHORTNESS OF BREATH THROUGHOUT THE SHIFT. PATIENT UP TO THE BATHROOM INDEPENDENTLY. NO DESATURATIONS NOTED ON CONTINUOUS BIOX. ON ROOM AIR. PUNCTURE SITES ARE C/D/I. PATIENT REPORTED CHRONIC SHOULDER PAIN. MEDICATED PER PRNS. PATIENT RECEIVED A SECOND SESSION OF DIABETES NUTRITION EDUCATION FROM THE SAMPLE FINISHER STUDENT. PATIENT RECEIVED HOME MEDICATION EDUCATION FROM THE PHARMACIST. PATIENT REPORTED UNDERSTANDING. FURTHER EDUCATION ABOUT DIABETES MELLITUS PROVIDED TO THE PATIENT FROM THE RN. ENCOURAGED PATIENT TO FOLLOW-UP ON EDUCATION DURING HIS UPCOMING APPOINTMENT AT [place]. PATIENT AND PATIENT'S FRIEND REPORTED UNDERSTANDING. DISCHARGE RX FAXED TO [facility] PER PATIENT REQUEST. DISCHARGE INSTRUCTIONS AND EDUCATION PROVIDED. ALL QUESTIONS AND CONCERNS ADDRESSED AT THIS TIME. PATIENT ABLE TO DEMONSTRATE USE OF INCENTIVE SPIROMETER. PATIENT DISCHARGED IN WHEELCHAIR WITH DEPUTY CORONER INVESTIGATOR. PATIENT STABLE AT TIME OF DISCHARGE.
== END 2022-12-11 12:58 | disposition home or self-care (01) | DRG 871 ==
LOC: ER 10:48 → MEDS 14:39
PROVIDERS: Family Medicine; Hospitalist; Internal Medicine Critical Care Medicine; Internal Medicine Endocrinology, Diabetes & Metabolism; Student in an Organized Health Care Education/Training Program; ADMIT Family Medicine
PROC: 0W9B3ZZ Drainage of Left Pleural Cavity, Percutaneous Approach (ICD-10-PCS; 2022-11-28)
PROC: 3E03329 Introduction of Other Anti-infective into Peripheral Vein, Percutaneous Approach (ICD-10-PCS; 2022-11-28)
PROC: 0W9B30Z Drainage of Left Pleural Cavity with Drainage Device, Percutaneous Approach (ICD-10-PCS; principal; 2022-12-02)
PROC: 0W9B30Z Drainage of Left Pleural Cavity with Drainage Device, Percutaneous Approach (ICD-10-PCS; 2022-12-03)
PROC: 3E03317 Introduction of Other Thrombolytic into Peripheral Vein, Percutaneous Approach (ICD-10-PCS; 2022-12-07)
DX: A40.8 Other streptococcal sepsis (principal); J18.9 Pneumonia, unspecified organism; J96.00 Acute respiratory failure, unspecified whether with hypoxia or hypercapnia; J86.9 Pyothorax without fistula; J69.0 Pneumonitis due to inhalation of food and vomit; E87.20 Acidosis, unspecified; J91.8 Pleural effusion in other conditions classified elsewhere; R65.20 Severe sepsis without septic shock; F10.20 Alcohol dependence, uncomplicated; E11.65 Type 2 diabetes mellitus with hyperglycemia; I44.1 Atrioventricular block, second degree; F17.210 Nicotine dependence, cigarettes, uncomplicated; F41.9 Anxiety disorder, unspecified; E66.9 Obesity, unspecified; F32.A Depression, unspecified; G47.00 Insomnia, unspecified; F12.10 Cannabis abuse, uncomplicated; Z79.2 Long term (current) use of antibiotics; Z79.899 Other long term (current) drug therapy; Z98.890 Other specified postprocedural states; Z68.32 Body mass index [BMI] 32.0-32.9, adult; Z71.41 Alcohol abuse counseling and surveillance of alcoholic
CPT/HCPCS: 32551; 32555; 36415; 49406; 71045; 71046; 71250; 71260; 80048; 80053; 80069; 82042; 82945; 83036; 83605; 83615; 83735; 83880; 83986; 84100; 84155; 84157; 84484; 85025; 85610; 85651; 85730; 86140; 87040; 87070; 87075; 87076; 87205; 89051; 93005; 93010; 94644; 94664; 94762; 96374-59; 99285-25; A9270; C1729; J0456; J0696; J1650; J1885; J2930; J2997; J7050; J7120; Q9967

== ENCOUNTER 2024-07-15 16:41 | Inpatient (IN) | payer OTHER ==
[~2024-07-15] VITALS: Ht 175.3 cm; Wt 104.0 kg
[~2024-07-15 16:41] MED LIST changes: +AMOCLA875 PO; +Acetaminophen650 M1 PO; +METF500 PO; +NICO21TP TOP
[2024-07-15] MEDS ORDERED: NS 1,000 ML IV SCH ×2 (17:00→22:30)
[2024-07-15] MEDS ORDERED: Folic Acid 1 MG in NS 50 ML IV ONE (17:00)
[2024-07-15] MEDS ORDERED: Thiamine HCl 100 MG in NS 50 ML IV ONE (17:00)
[2024-07-15 18:19] LABS: BASOPHILS ABSOLUTE AUTO 0.04 K/mm3 (0.00-0.23); BASOPHILS PERCENT AUTO 1 % (0-2); EOSINOPHILS ABSOLUTE AUTO 0.03 K/mm3 (0.00-0.68); EOSINOPHILS PERCENT AUTO 0 % (0-6); Hematocrit 41.8 % (37.0-53.0); IMMATURE GRAN ABSOLUTE AUTO 0.04 K/mm3 (0.00-0.10); IMMATURE GRAN PERCENT AUTO 1 % (0-1); LYMPHOCYTES ABSOLUTE AUTO 0.84 K/mm3 (0.84-5.20); LYMPHOCYTES PERCENT AUTO 10 % (21-46); MONOCYTES PERCENT AUTO 8 % (4-13); Mean Corpuscular HGB 31.9 pg (26.0-34.0); Mean Corpuscular HGB Conc 33.5 g/dL (31.5-36.5); Mean Corpuscular Volume 95 fL (80-100); Mean Platelet Volume 10.3 fL (9.1-12.4); NEUTROPHILS ABSOLUTE AUTO 6.84 K/mm3 (1.96-9.15); NEUTROPHILS PERCENT AUTO 81 % (41-73); Platelet Count 231 K/mm3 (150-400); RDW Coefficient Variation 13.2 % (11.7-14.2); RDW Standard Deviation 45.8 fL (35.1-46.3); Red Blood Cell Count 4.39 M/mm3 (4.30-5.90); White Blood Cell Count 8.49 K/mm3 (4.00-11.30)
[2024-07-15 18:51] LABS: Free Thyroxine 0.9 ng/dL (0.70-1.60); Magnesium, Blood 2.2 mg/dL (1.6-2.4); Thyroid Stimulating Hormone 1.09 uIU/mL (0.360-4.800)
[2024-07-15 18:52] LABS: Bun/Creatinine Ratio 11.8 (12.0-20.0); Calcium, Blood 8.4 mg/dL (8.5-10.1); Creatinine, Blood 1.02 mg/dL (0.60-1.20); Potassium, Blood 3.8 mmol/L (3.5-5.5)
[2024-07-15] MEDS ORDERED: Acetaminophen 500 MG Tab PO ONE (19:55)
[2024-07-15 21:45] LABS: Source, Urine Clean Catch
[2024-07-15 21:48] LABS: Bilirubin, Urine Neg (Neg); Blood, Urine 1+ (Neg); Glucose Qualitative, Urine 2+ (Neg); Ketones, Urine Neg (Neg); Leukocyte Esterase, Urine Neg (Neg); Nitrite, Urine Neg (Neg); Protein, Urine 2+ (Neg); Specific Gravity, Urine 1.015 (1.003-1.022); Urobilinogen, Urine NORM (Normal)
[2024-07-15 21:53] LABS: Appearance, Urine Clear (Clear); Color, Urine Yellow (P-Yellow)
[2024-07-15 21:55] LABS: Bacteria Few /hpf; Calcium Oxalate Crystals Few /hpf; Red Blood Cells, Urine 0-2 /hpf (0-2); Squamous Epithelial Cells Few /hpf (Few); White Blood Cells, Urine 0-2 /hpf (0-5)
[2024-07-15 22:17] LABS: Anti-Xa UFH, PHA Monitoring <0.10 IU/mL; International Normalized Ratio 0.99; Prothrombin Time Results 10.6 Sec (9.7-11.5)
[2024-07-15] MEDS ORDERED: FLU VACC TS2024-25(6MOS UP)/PF 45 MCG/0.5 ML SYRINGE IM SCH (22:25)
[2024-07-15] MEDS ORDERED: ChlordiazePOXIDE 25 MG Cap PO PRN (22:25)
[2024-07-15] MEDS ORDERED: LORazepam 2 MG/ML 1ML Injection IV PRN (22:30)
[2024-07-15] MEDS ORDERED: Ondansetron HCl 2 MG / ML 2ML Vial IV PRN (22:30)
[2024-07-15 22:48] LABS: D-Dimer, Quantitative 0.26 mg/L FEU (0.00-0.52)
[2024-07-15] MEDS ORDERED: Heparin Sodium,Porcine/0.5 NS 500 ML IV SCH (23:15)
[2024-07-15] MEDS ORDERED: Heparin Sodium 5000 Units/ML 1ML MDV IV ONE (23:15)
[2024-07-15 23:24] LABS: U Amphetamine Screen DETECTED; U Barbituate Screen Not Detected; U Benzodiazapine Screen Not Detected; U Buprenorphine Screen Not Detected; U Cannabinoids Screen DETECTED; U Cocaine Screen Not Detected; U Methadone Screen Not Detected; U Methamphetamine Screen DETECTED; U Opiates Screen Not Detected; U Oxycodone Screen Not Detected; U Phencyclidine Screen Not Detected
[2024-07-16] VITALS (8 sets, daily range): BP systolic 138–184; BP diastolic 61–92
[2024-07-16] MEDS ORDERED: HydrALAZINE HCl 20 MG / ML 1ML Vial IV ONE (01:30)
[2024-07-16] MEDS ORDERED: FentaNYL Citrate 50 MCG/ML 2 ML Injection IV PRN (01:50)
[2024-07-16] MEDS ORDERED: HydrALAZINE HCl 20 MG / ML 1ML Vial IV PRN (01:55)
[2024-07-16] MEDS ORDERED: Atorvastatin 40 MG Tab PO SCH (02:00)
[2024-07-16] MEDS ORDERED: Aspirin 81 MG Chew PO SCH (02:00)
[2024-07-16] MEDS ORDERED: Clopidogrel Bisulfate 75 MG Tab PO SCH (02:00)
[2024-07-16] MEDS ORDERED: NS 1,000 ML IV SCH (02:40)
[2024-07-16] MEDS ORDERED: Ipratropium/Albuterol SulF 2.5-0.5MG/3 ML Amp INH ONE (03:15)
[2024-07-16] MEDS ORDERED: LISI5 PO (04:05)
[2024-07-16] MEDS ORDERED: METFORMIN HCL500 M2 PO (04:05)
[2024-07-16] MEDS ORDERED: METOPROLOL SUCC25 MG PO (04:05)
[2024-07-16] MEDS ORDERED: LOW DOSE ASPIRI81 M1 PO (04:06)
[2024-07-16] MEDS ORDERED: PLAVIX75 MG PO (04:06)
[2024-07-16] MEDS ORDERED: LIPITOR80 MG PO (04:06)
--- NOTE | 2024-07-16 06:19 | NUR ---
SHIFT SUMMARY PATIENT IS ALERT AND ORIENTED TO ALL. FULL CODE. USES CALL LIGHT APPROPRIATELY AND IS ABLE TO MAKE NEEDS KNOWN. PLEASANT AND COOPERATIVE WITH CARE. PATIENT IS A POOR HISTORIAN AND REPORTS NOT TAKING ANY OF HIS PRESCRIBED MEDICATIONS. PATIENT IS ABLE TO GET UP TO USE THE RESTROOM WITH ASSISTANCE. USES URINAL AT THE SIDE OF THE BED. PATIENT REPORTS HAVING A PRODUCTIVE COUGH EVERY NIGHT. CRITICAL LAB AND HIGH BLOOD PRESSURE RELAYED TO DR. STEINBERG. THIS RN WILL RELAY ALL INFORMATION TO ONCOMING NURSE. NO ACUTE CHANGES DURING THIS SHIFT.
--- NOTE | 2024-07-16 06:35 | NUR ---
SPOKE WITH RAZ IN TELEMETRY WHO NOTIFIED THIS RN OF A 2 SECOND PAUSE IN THE PATIENT'S HEART RATE, AND BRADYCARDIA IN THE 30S. THIS RN NOTIFIED DR STEINBERG OF THIS FINDING. DOCTOR STATED THAT THE PATIENT HAS AN X-RAY THIS MORNING AND THAT THE PATIENT WOULD BE MONITORED. NOTIFIED RAZ [employer] OF THIS DISCUSSION.
[2024-07-16 06:39] LABS: BASOPHILS ABSOLUTE AUTO 0.05 K/mm3 (0.00-0.23); BASOPHILS PERCENT AUTO 1 % (0-2); EOSINOPHILS ABSOLUTE AUTO 0.11 K/mm3 (0.00-0.68); EOSINOPHILS PERCENT AUTO 1 % (0-6); Hematocrit 41.8 % (37.0-53.0); Hemoglobin 14.4 g/dL (13.5-17.5); IMMATURE GRAN ABSOLUTE AUTO 0.03 K/mm3 (0.00-0.10); IMMATURE GRAN PERCENT AUTO 0 % (0-1); LYMPHOCYTES ABSOLUTE AUTO 1.77 K/mm3 (0.84-5.20); LYMPHOCYTES PERCENT AUTO 20 % (21-46); MONOCYTES ABSOLUTE AUTO 0.87 K/mm3 (0.16-1.47); MONOCYTES PERCENT AUTO 10 % (4-13); Mean Corpuscular HGB 31.9 pg (26.0-34.0); Mean Corpuscular HGB Conc 34.4 g/dL (31.5-36.5); Mean Corpuscular Volume 93 fL (80-100); Mean Platelet Volume 10.6 fL (9.1-12.4); NEUTROPHILS ABSOLUTE AUTO 5.98 K/mm3 (1.96-9.15); NEUTROPHILS PERCENT AUTO 68 % (41-73); Platelet Count 220 K/mm3 (150-400); RDW Coefficient Variation 13.2 % (11.7-14.2); Red Blood Cell Count 4.51 M/mm3 (4.30-5.90); White Blood Cell Count 8.81 K/mm3 (4.00-11.30)
--- NOTE | 2024-07-16 06:44 | NUR ---
RECIEVED ANOTHER CALL REGARDING 2 SECOND PAUSES. [employer] RAZ REPORTS THAT SHE WILL CALL AGAIN IF THIS CONTINUES OR GOES OVER 3 SECONDS.
[2024-07-16 07:03] LABS: Albumin, Blood 3.1 g/dL (3.4-5.0); Albumin/Globulin Ratio 0.9 (0.8-1.8); Bilirubin, Total 1.2 mg/dL (0.1-1.0); Bun/Creatinine Ratio 12.7 (12.0-20.0); Calcium, Blood 8.7 mg/dL (8.5-10.1); Creatinine, Blood 0.95 mg/dL (0.60-1.20); Globulin, Blood 3.4 g/dL (2.2-4.0); Potassium, Blood 3.6 mmol/L (3.5-5.5); Total Protein, Blood 6.5 g/dL (6.4-8.2)
[2024-07-16] MEDS ORDERED: Dose Adjust by Pharmacy XX STA ×2 (07:13→13:00)
[2024-07-16] MEDS ORDERED: Potassium Chl 20MEQ/Water100ML 100 ML IV SCH (07:40)
--- NOTE | 2024-07-16 07:42 | NUR ---
[id number] RN AND BISHOP RN NOTIFIED OF ELEVATED TROPONIN 5177 AND VERY LONG RUN OF VTACH, PT REPORTS NO CHEST PAIN, OR FEELINGS OF "UNEASYNESS". NOTIFIED AND AGREES PT TO BE TRANSFERRED PCU.
--- NOTE | 2024-07-16 07:55 | NUR ---
TRANSFER PT A&OX4, ABLE TO MAKE NEEDS KNOWN, AND COOPERATIVE. PT TRANSFER TO PCU 09, GAVE REPORT TO SANTOSH. COOKER CHIP NOTIFIED ABOUT TRANSFER.
[2024-07-16] MEDS ORDERED: Atropine Sulfate 0.1 MG/ML 10ML SYR IV PRN (08:05)
[2024-07-16] MEDS ORDERED: Mag Sulfate 1 GM/D5% 100ML 100 ML IV STA (08:06)
--- NOTE | 2024-07-16 08:16 | NUR ---
TRANSFER NOTE: Pt arrived to room PCU 9 from medical floor. A/O x4. LS diminished. HR reg at this time. Denies chest pain at this time. States that he is feeling a little SOB and a little dizzy, also c/o some pain in the R foot. BT positive. Pulses palp. Explained to patient reason for transfer to PCU, reason for NPO status and cardiac concerns. Pt oriented to call light, room and unit. Dr. Schmidt in to see patient. WIll monitor.
[2024-07-16] MEDS ORDERED: Thiamine HCl 100 MG in NS 50 ML IV SCH (09:00)
--- NOTE | 2024-07-16 10:25 | NUR ---
REPORT RECIEVED FROM WINSTON WELCH RN AT 1040. THIS RN TO TAKE OVER CARE,
--- NOTE | 2024-07-16 17:59 | NUR ---
SHIFT SUMMARY PT A/OX3-4 SINCE ARRIVING TO UNIT, FORGETFUL AT TIMES. PT ABLE TO EXPRESS NEEDS AND CALLS APPROPIATE. PT TRNASFERED FROM MED FLOOR D/T EPISODES OF VTACH AND BRADYING TO THE 30'S. OTHER VSS SINCE ARRIVING TO UNIT WITH O2 SATS IN THE 90'S ON RA. NO REPORT OF CHEST PAIN/PRESSURE. NO REPORT OF SOB/DYSPNEA. PT SEEN BY CARDIOLOGY D/T ELEVATED TROPONIN, MEDICAL MANAGEMENT AT THIS TIME. ECHO DONE, SEE CHART FOR RESULT. PT UP TO CHAIR PER REQUEST, 1 PERSON ASSIST, TOLERATED WELL. HEP GTT RUNNING PER EMAR.
[2024-07-17 04:03] VITALS: BP 145/77
[2024-07-17 04:03] LABS: BASOPHILS ABSOLUTE AUTO 0.07 K/mm3 (0.00-0.23); BASOPHILS PERCENT AUTO 1 % (0-2); EOSINOPHILS ABSOLUTE AUTO 0.18 K/mm3 (0.00-0.68); EOSINOPHILS PERCENT AUTO 2 % (0-6); Hemoglobin 14.5 g/dL (13.5-17.5); IMMATURE GRAN ABSOLUTE AUTO 0.03 K/mm3 (0.00-0.10); IMMATURE GRAN PERCENT AUTO 0 % (0-1); LYMPHOCYTES ABSOLUTE AUTO 1.32 K/mm3 (0.84-5.20); LYMPHOCYTES PERCENT AUTO 17 % (21-46); MONOCYTES ABSOLUTE AUTO 0.87 K/mm3 (0.16-1.47); MONOCYTES PERCENT AUTO 12 % (4-13); Mean Corpuscular HGB 31.7 pg (26.0-34.0); Mean Corpuscular HGB Conc 33.7 g/dL (31.5-36.5); Mean Corpuscular Volume 94 fL (80-100); Mean Platelet Volume 10.3 fL (9.1-12.4); NEUTROPHILS ABSOLUTE AUTO 5.11 K/mm3 (1.96-9.15); NEUTROPHILS PERCENT AUTO 67 % (41-73); Platelet Count 216 K/mm3 (150-400); RDW Coefficient Variation 13.2 % (11.7-14.2); RDW Standard Deviation 45.7 fL (35.1-46.3); Red Blood Cell Count 4.58 M/mm3 (4.30-5.90); White Blood Cell Count 7.58 K/mm3 (4.00-11.30)
[2024-07-17 04:26] LABS: Bun/Creatinine Ratio 11.8 (12.0-20.0); Calcium, Blood 8.6 mg/dL (8.5-10.1); Creatinine, Blood 1.02 mg/dL (0.60-1.20); Potassium, Blood 4.2 mmol/L (3.5-5.5)
--- NOTE | 2024-07-17 06:13 | NUR ---
SHIFT SUMMARY CIWA 0. HEPARIN GTT INFUSING. ON TELE, PT HAD ONE COREEN EPISODE WITH A 2S PAUSE, NOT NEW. VITALLY STABLE. DENIES CHEST PAIN/PRESSURE, DIZZINESS.
--- NOTE | 2024-07-17 11:14 | NUR ---
ASSUMPTION OF CARE PT ALERT AND ORIENTED, CALM, COOPERATIVE TO CARE, HE HAS BRUSING/ABRASIONS ABOVE RIGHT EYE FROM FALL AT HOME, OTERHWISE SKIN INTACT. NSR/SB, HR 60'S-70'S, DENIES CP/PRESSURE, NUMB/TINGLING, SBP STABLE. DENIES SOB AT THIS TIME O2 >93% ON RA, L/S DIM T/O. +BS, FIRM ON PALPATION, MOD DISTENTION BUT PT STATES NORMAL. HEPARIN GTT RUNNING ORDERED. PROVIDER TO BEDSIDE TO DISCUSS PLAN OF CARE. CARDIOLOGY PLANS TO SEND PATIENT HOME WITH HEART MONITOR FOR 2 WEEKS, AND CARDIOLOGY CONSULT IN 1 MONTH OUTPATIENT. PT AGREEABLE TO PLAN, NO QUESTIONS OR CONCERNS AT THIS TIME. WILL CONTINUE TO MONITOR PT AND AWAIT D/C ORDERS.
[2024-07-17 12:08] VITALS: BP 14/69
[2024-07-17] MEDS ORDERED: LOSA25 PO (12:21)
--- NOTE | 2024-07-17 14:11 | NUR ---
DISCHARGE SUMMARY PT ALERT AND ORIENTED, COOPERATIVE TO CARE. SR, HR IN THE 70'S. PT AGREEABLE TO PLAN OF CARE. DISCHARGE INSTUCTIONS REVIEWED WITH PT AND FAMILY FRIEND. EDUCATED PT ON THE IMPORTANCE OF TAKING HOME MEDICATIONS DIRECTED, TO BE CAUTIOUS OF INJURY WHILE ON PLAVIX. PT TO RETURN TO THE [facility] 07/19 FOR PLACEMENT OF HEART MONITOR AND F/U WITH CARDIOLGY ONCE COMPLETE, PT AGREEABLE TO PLAN AND NOTED UNDERSTANDING. HEPARIN GTT D/C. RAC, L WRSIT PIV REMOVED, PRESSURE APPLIED, COBAN AND GAUZE APPLIED, PT TOLERATED WELL. LAC PIV REMOVED, PT HAD SOME BLEEDING PRESSURE APPLIED FOR A FEW MINUTES, BLEEDING RESOLVED, COVERED WITH GAUZE AND COBAN. PT LEFT VIA WHEELCHAIR AT 1315 WITH RN.
== END 2024-07-17 13:15 | disposition home or self-care (01) | DRG 282 ==
LOC: ER 16:41 → PCU 16:42 → MEDS 16:42 → PCU 07-16 07:58
PROVIDERS: Emergency Medicine; Internal Medicine; ADMIT Internal Medicine
PROC: HZ2ZZZZ Detoxification Services for Substance Abuse Treatment (ICD-10-PCS; principal; 2024-07-16)
DX: I47.20 Ventricular tachycardia, unspecified (principal); I21.A1 Myocardial infarction type 2; F15.10 Other stimulant abuse, uncomplicated; I25.10 Atherosclerotic heart disease of native coronary artery without angina pectoris; F10.229 Alcohol dependence with intoxication, unspecified; I45.5 Other specified heart block; Z71.51 Drug abuse counseling and surveillance of drug abuser; F17.210 Nicotine dependence, cigarettes, uncomplicated; F41.9 Anxiety disorder, unspecified; F32.A Depression, unspecified; E11.9 Type 2 diabetes mellitus without complications; Z79.82 Long term (current) use of aspirin; Z79.811 Long term (current) use of aromatase inhibitors; Z79.84 Long term (current) use of oral hypoglycemic drugs; Z79.899 Other long term (current) drug therapy; Z91.148 Patient's other noncompliance with medication regimen for other reason; Y90.1 Blood alcohol level of 20-39 mg/100 ml
CPT/HCPCS: 36415; 70450; 71045; 72125; 80048; 80053; 80320; 81001; 82550; 82607; 83735; 83880; 84439; 84443; 84484; 85025; 85379; 85520; 85610; 85730; 93005; 93010; 93306; 94640; 94664; 94760; 96365; 96366; 96367; 96375; 96376; 99285-25; A9270; G0378; J0360; J1644; J3411; J3475; J3480; J7030; L0160